=== PATIENT | female | born 1965 | race Caucasian/White ===

== ENCOUNTER → 2019-06-17 15:22 | Outpatient (CLI) | payer OTHER, SELFPAY ==
--- NOTE | 2019-06-17 | DI.MG.S_ITS ---
BILATERAL DIGITAL SCREENING MAMMOGRAM 3D/2D WITH CAD: 06/17/2019 CLINICAL: Routine screening. Family history of breast cancer. Comparison is made to exams dated: 10/14/2017 mammogram, 09/26/2017 mammogram, 12/04/2016 mammogram, 10/19/2013 mammogram, and 09/29/2012 mammogram - [facility]. The tissue of both breasts is extremely dense, which lowers the sensitivity of mammography. Current study was also evaluated with a Computer Aided Detection (CAD) system. There are biopsy clips in the left breast. No significant masses, calcifications, or other findings are seen in either breast. There has been no significant interval change. IMPRESSION: NEGATIVE There is no mammographic evidence of malignancy. A 1 year screening mammogram is recommended. This exam was interpreted at Station ID: [id number]. NOTE: For mammograms, a report in lay terms will be sent to the patient. Approximately 15% of breast malignancies will not be visualized mammographically. In the management of a palpable breast mass, a negative mammogram must not discourage biopsy of a clinically suspicious lesion. Electronically Signed By: Humberto botello/víctor:06/18/2019 15:17:24 letter sent: Normal Exam ACR BI-RADS Category 1: Negative 3341F
== END ==
PROVIDERS: PCP Internal Medicine; Visit Provider Internal Medicine
DX: Z12.31 Encounter for screening mammogram for malignant neoplasm of breast (principal); Z80.3 Family history of malignant neoplasm of breast
CPT/HCPCS: 77063; 77067

== ENCOUNTER → 2019-10-12 10:52 | Outpatient (CLI) | payer OTHER, SELFPAY ==
--- NOTE | 2019-10-12 | DI.RAD.S_ITS ---
PROCEDURE: XR CHEST 2V INDICATIONS: DYSPNEA TECHNIQUE: 2 views of the chest were acquired. COMPARISON: [facility], , CHEST 2 VIEW, 07/09/2016, 15:53. FINDINGS: Surgical changes and devices: None. Lungs and pleura: Lungs are clear, lung volumes appear somewhat enlarged. No pleural effusions or pneumothorax. Mediastinum: Mediastinal contours are normal. Heart size is normal. Bones and chest wall: No suspicious bony abnormalities. Soft tissues appear unremarkable. IMPRESSION: Relatively enlarged lung volumes for age, source of current dyspnea symptoms is not seen as being caused by pneumonia. Please correlate for presence of asthma or COPD. Aggressive inspiratory effort also could produce this appearance. Dictated by: Chu Ortiz M.D. on 10/12/2019 at 11:20 Approved by: Chu Ortiz M.D. on 10/12/2019 at 11:21
== END ==
PROVIDERS: PCP Internal Medicine; Referring Provider Internal Medicine; Visit Provider Internal Medicine
DX: R06.00 Dyspnea, unspecified (principal)
CPT/HCPCS: 71046

== ENCOUNTER → 2020-06-19 11:50 | Outpatient (CLI) | payer OTHER, SELFPAY ==
--- NOTE | 2020-06-19 | DI.MG.S_ITS ---
BILATERAL DIGITAL SCREENING MAMMOGRAM 3D/2D WITH CAD: 06/19/2020 CLINICAL: Routine screening. Family history of breast cancer. Comparison is made to exams dated: 06/17/2019 mammogram - [facility], 12/17/2017 mammogram - [facility], 10/14/2017 mammogram, and 09/26/2017 mammogram - [facility]. The tissue of both breasts is extremely dense, which lowers the sensitivity of mammography. Current study was also evaluated with a Computer Aided Detection (CAD) system. There are benign calcifications in both breasts. There also are biopsy clips in the left breast. No significant masses, calcifications, or other findings are seen in either breast. There has been no significant interval change. IMPRESSION: BENIGN There is no mammographic evidence of malignancy. A 1 year screening mammogram is recommended. This exam was interpreted at Station ID: [id number]. NOTE: For mammograms, a report in lay terms will be sent to the patient. Approximately 15% of breast malignancies will not be visualized mammographically. In the management of a palpable breast mass, a negative mammogram must not discourage biopsy of a clinically suspicious lesion. Electronically Signed By: Isaiah quiles/víctor:06/19/2020 12:43:05 letter sent: Normal Exam ACR BI-RADS Category 2: Benign Finding(s) 3342F
== END ==
PROVIDERS: PCP Internal Medicine; Referring Provider Internal Medicine; Visit Provider Internal Medicine
DX: Z12.31 Encounter for screening mammogram for malignant neoplasm of breast (principal); Z80.3 Family history of malignant neoplasm of breast
CPT/HCPCS: 77063; 77067

== ENCOUNTER → 2020-11-08 09:09 | Outpatient (CLI) | payer OTHER, SELFPAY ==
[2020-11-08 10:54] LABS: COVID19 -Nasal RAPID Negative (Negative)
== END ==
PROVIDERS: PCP Internal Medicine; Visit Provider Nurse Practitioner Family
DX: Z01.812 Encounter for preprocedural laboratory examination (principal); Z20.822 Contact with and (suspected) exposure to COVID-19
CPT/HCPCS: 87635

== ENCOUNTER 2020-11-10 14:15 | Day surgery (SDC) | payer OTHER, SELFPAY ==
--- NOTE | 2020-11-10 | PATH_ITS ---
[facility] Accession Number: [id number] . 01 Material submitted: . colon - SIGMOID POLYP 2MM . 02 Diagnosis: Sigmoid Colon, Polyp, 2 MM, Biopsy: Hyperplastic polyp. [facility] 11/15/2020 1405 Local . 02 Electronically signed: . Felipa Santiago MD, Pathologist NPI- [id number] . 01 Gross description: . SIGMOID POLYP 2MM: Received in formalin is 1 fragment(s) of herrera, soft tissue measuring 0.3 x 0.3 x 0.3 cm submitted entirely in 1 cassette(s) /QBJ 11/14/2020 0122 Local . 02 Pathologist provided ICD-10: K63.5 . 02 CPT . 517482 Performed at: 01 [facility] [address], [place], [place] [id number] MD Ruben Cartwright MD Phone: [phone] Performed at: [address] [facility] [address] [place], [place] [id number] MD Felipa Santiago MD Phone: [phone]
--- NOTE | 2020-11-10 12:38 | PM.HP.1 ---
History of Present Illness History of Present Illness Date Patient Seen: 11/10/20 Chief complaint: SDC Narrative: 54 year old female comes in today for consideration of a screening colonoscopy. She has had 2 lifetime colonoscopies secondary to colitis, type unspecified. It has been over 10 years since her last colonoscopy, normal. Patient has been in complete remission from her colitis for the past 10 years. There have been no lower GI symptoms suggesting disease such as change in bowel habits, bleeding, abdominal pain or anemia. There's been no family history of colon cancer or colon polyps. Overall health issues have been stable, including no major cardiac events for at least 6 weeks. 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 Twin girls, 2001. Patient History Medical History (Updated 11/10/20 @ 14:32 by Moses Aguirre RN) Asthma Colitis Dysthymia Pneumonia Surgical History (Updated 11/10/20 @ 14:32 by Moses Aguirre RN) Hx of breast biopsy Status post delivery Family & Social History Family History (Updated 10/03/16 @ 00:00 by Conversion Provider) Father Age: 74 Obese Mother Age: 74 Breast cancer Meds Home Medications and Allergies Home Medications Medication Instructions Recorded Confirmed Type cetirizine 10 mg PO QDAY #90 tab 11/29/16 11/10/20 Rx montelukast [Singulair] 10 mg PO QDAY #90 tab 08/11/17 11/10/20 Rx pantoprazole 40 mg PO QDAY #90 tab 12/29/17 11/10/20 Rx bupropion HCl 300 mg 24 hr tablet, 300 mg PO QDAY #90 tab 07/22/18 11/10/20 Rx extended release Allergies Allergy/AdvReac Type Severity Reaction Status Date / Time Sulfa (Sulfonamide Allergy Mild Unverified 12/17/17 12:04 Antibiotics) [SULFA (SULFONAMIDE ANTIBIOTICS)] Review of Systems Review of Systems ROS: Yes All systems reviewed with the patient and are negative except as otherwise documented Exam Narrative Exam Narrative: GENERAL: Alert and oriented, appearing stated age and in no acute distress. HEENT: Head normocephalic/atraumatic. Pupils equal, round, and reactive to light and accomodation. Extraocular muscles intact. Tympanic membranes clear. Nasal mucosa moist, septum midline. Oral mucosa moist, no lesions. Neck soft and supple, no lymphadenopathy. LUNGS: Clear to ausculation bilaterally, no wheezes, rhonchi or rales. CV: Normal S1 and S2 with regular rate and rhythm, no audible murmurs, rubs or gallops. ABDOMEN: Soft, non-tender, non-distended, no organomegaly. Positive bowel sounds. EXTREMITIES: No clubbing, cyanosis, or edema. NEURO: Cranial nerves II through XII grossly intact, no focal deficits. PSYCH: Alert and oriented x 3. SKIN: No concerning lesions. Assessment & Plan Assessment & Plan narrative: 1. Screening for colon cancer Plan for colonoscopy. The nature and character of the procedure as well as anticipated results were discussed. The possibility of not completing the procedure was also discussed. Possible complications including aspiration pneumonia, bleeding, perforation and reaction to medications either for sedation or preparation and missed lesions were discussed. Questions were answered and proceeding to the colonoscopy was elected. Informed consent signed. I sincerely appreciate the referral allowing me to participate in this patient's care. Please contact me with any questions or concerns.
--- NOTE | 2020-11-10 12:41 | P.OP.ENDO_ITS ---
Operative Date/Time/Diagnoses Date of procedure: 11/10/20 Procedure Notes SCOAP/Timeout: 3:23 p.m. Procedure in detail: ENDOSCOPIST: Caroline Linares MD Sedation RN: Suki Dale RN Sedation start time: 3:24 p.m. Sedation end time: 3:50 p.m. PROCEDURE: Colonoscopy with biopsy INDICATIONS: 1. Screening for colon cancer 2. History of colitis MEDICATION: Levsin 0.125 mg sublingual, incremental doses of Versed and fentanyl until appropriate level sedation achieved. ASA CLASS: 2 CECAL WITHDRAWAL TIME: 11 minutes COMPLICATIONS: None. EXTENT OF PROCEDURE: Cecum. QUALITY OF PREP: Good with portions of liquid stool. PROCEDURE: Prior to insertion of the colonoscope, a digital rectal examination was accomplished with circumferential palpation of the distal rectal mucosa without significant findings being noted. The high-definition pediatric colonoscope was passed into the rectum in the usual fashion and advanced over to the cecum without difficulty. The ileocecal valve, appendiceal stoma, and medial wall all could be inspected and no abnormalities were seen. ASCENDING COLON: As the colonoscope was withdrawn, care was taken to expose and inspect the haustral folds and no abnormalities were seen. HEPATIC FLEXURE: Normal, no polyps, diverticula or other abnormalities. TRANSVERSE COLON: Normal, no polyps, diverticula or other abnormalities. DESCENDING COLON: Normal, no polyps, diverticula or other abnormalities. SIGMOID COLON: 2 mm polyps removed with cold biopsy forceps. Otherwise, normal, no diverticula or other abnormalities. RECTUM: Normal. J maneuver was produced. There was no significant perianal di sease. The J maneuver was broken. The remainder of the rectum was inspected and there was no external hemorrhoid disease. The scope was withdrawn. IMPRESSION: 1. Sigmoid polyp x1, 2 mm, removed with cold biopsy forceps 2. No gross evidence of colitis. PLAN: 1. Follow-up in clinic status post pathology results. The possibility of a missed lesion including a malignancy has been discussed with the patient previously. Potential alarm symptoms have been discussed and should be reported immediately.
[2020-11-10] MEDS: HYOSCYAMINE 0.125 MG TABLET PO (14:45)
[2020-11-10] MEDS: LACTATED RINGERS 1,000 ML 200 ML IV (14:58)
[2020-11-10 15:01] VITALS: BP 132/90; PULSE 74; RESP 13; TEMP 36.9; O2SAT 96; BMI 24.1
[2020-11-10] MEDS: MIDAZOLAM 5 MG/5 ML VIAL IV (15:43)
[2020-11-10] MEDS: fentaNYL 250 MCG/5 ML INJ IV (15:43)
[2020-11-10 16:04] VITALS: BP 130/85; PULSE 63; RESP 18; TEMP 36.7; O2SAT 99
[2020-11-10 16:09] VITALS: BP 119/81; PULSE 72; RESP 18; O2SAT 98
[2020-11-10 16:13] VITALS: BP 128/82; PULSE 70; RESP 19; O2SAT 98
[2020-11-10 16:18] VITALS: BP 124/91; PULSE 66; RESP 18; O2SAT 98
[2020-11-10 16:20] VITALS: BP 125/78; PULSE 67; RESP 18; TEMP 36.4; O2SAT 99
== END 2020-11-10 15:35 | disposition home or self-care (01) ==
PROVIDERS: PCP Internal Medicine; Referring Provider Student in an Organized Health Care Education/Training Program; Visit Provider Student in an Organized Health Care Education/Training Program
PROC: 0DJD8ZZ Inspection of Lower Intestinal Tract, Via Natural or Artificial Opening Endoscopic (ICD-10-PCS; CPT 45378; principal; 2020-11-10 15:15)
DX: Z12.11 Encounter for screening for malignant neoplasm of colon (principal); K63.5 Polyp of colon
CPT/HCPCS: 45380; J2250; J3010

== ENCOUNTER → 2021-07-09 17:10 | Outpatient (CLI) | payer OTHER, SELFPAY ==
--- NOTE | 2021-07-09 17:12 | DI.MG.S_ITS ---
BILATERAL DIGITAL SCREENING MAMMOGRAM 3D/2D WITH CAD: 07/09/2021 CLINICAL: Routine screening. Family history of breast cancer. Comparison is made to exams dated: 06/19/2020 mammogram, 06/17/2019 mammogram - [facility], 12/17/2017 mammogram - [facility], and 09/26/2017 [facility]. The tissue of both breasts is heterogeneously dense. This may lower the sensitivity of mammography. Current study was also evaluated with a Computer Aided Detection (CAD) system. There are benign calcifications in both breasts. There also are biopsy clips in the left breast. No significant masses, calcifications, or other findings are seen in either breast. There has been no significant interval change. IMPRESSION: BENIGN There is no mammographic evidence of malignancy. A 1 year screening mammogram is recommended. This exam was interpreted at Station ID: [id number]. NOTE: For mammograms, a report in lay terms will be sent to the patient. Approximately 15% of breast malignancies will not be visualized mammographically. In the management of a palpable breast mass, a negative mammogram must not discourage biopsy of a clinically suspicious lesion. Electronically Signed By: Isaiah quiles/víctor:07/09/2021 17:31:45 letter sent: Normal Exam ACR BI-RADS Category 2: Benign Finding(s) 3342F
== END ==
PROVIDERS: PCP Internal Medicine; Referring Provider Internal Medicine; Visit Provider Internal Medicine
DX: Z12.31 Encounter for screening mammogram for malignant neoplasm of breast (principal); Z80.3 Family history of malignant neoplasm of breast
CPT/HCPCS: 77063; 77067

== ENCOUNTER → 2021-09-10 10:44 | Outpatient (CLI) | payer OTHER, SELFPAY ==
[2021-09-10 11:49] LABS: Hemoglobin A1C% w Est Avg Glu 5.4 % (4.0-6.0)
== END ==
PROVIDERS: PCP Internal Medicine; Referring Provider Internal Medicine; Visit Provider Internal Medicine
DX: R73.9 Hyperglycemia, unspecified (principal)
CPT/HCPCS: 36415; 83036

== ENCOUNTER → 2021-12-15 12:56 | Outpatient (CLI) | payer OTHER, SELFPAY | PROVIDERS: PCP Internal Medicine; Referring Provider Nurse Practitioner Critical Care Medicine; Visit Provider Nurse Practitioner Critical Care Medicine | DX: J02.9 Acute pharyngitis, unspecified (principal) | CPT/HCPCS: 87070; 87077; 87186 ==

== ENCOUNTER → 2022-07-08 15:20 | Outpatient (CLI) | payer OTHER, SELFPAY ==
--- NOTE | 2022-07-08 15:21 | DI.US.S_ITS ---
PROCEDURE: US PELVIC COMPLETE INDICATIONS: Postmenopausal bleeding TECHNIQUE: Real-time scanning was performed of the pelvic organs, with image documentation. Additional endovaginal scanning was necessary due to incomplete visualization of the adnexal and endometrial structures by transabdominal scanning. COMPARISON: None. FINDINGS: Uterus: Uterus is vertically oriented and normal in size at 6.2 x 3.4 x 5.3 cm. The myometrium is homogeneous. The endometrium measures 2.9 mm combined thickness. No abnormal vascularity. The cervix appears normal. Ovaries: There are ovary was well seen. Other: No pathologic free abdominal or pelvic fluid. IMPRESSION: 1. Vertically oriented uterus with probably normal endometrial stripe for postmenopausal female. 2. Nonvisualization of either ovary or any suspicious adnexal mass or fluid. We strive to produce accurate, complete, and clear reports of imaging services. To assist us in improving patient care, this report was composed using standard report templates and voice recognition software. Therefore, it may contain abnormal punctuation, insertions and/or omissions. Occasional wrong-word or sound-alike substitutions may occur. Though we review the report and make efforts to correct it, we do recommend that the report be read carefully in proper context to recognize any text inaccuracies. Dictated by: Shelly Norman M.D. on 07/08/2022 at 16:28 Approved by: Shelly Norman M.D. on 07/08/2022 at 16:30
== END ==
PROVIDERS: PCP Internal Medicine; Referring Provider Internal Medicine; Visit Provider Internal Medicine
DX: N95.0 Postmenopausal bleeding (principal)
CPT/HCPCS: 76830; 76856

== ENCOUNTER → 2022-08-06 08:26 | Outpatient (CLI) | payer OTHER, SELFPAY ==
--- NOTE | 2022-08-06 08:27 | DI.MG.S_ITS ---
BILATERAL DIGITAL SCREENING MAMMOGRAM 3D/2D WITH CAD: 08/06/2022 CLINICAL: Routine screening. Family history of breast cancer. Comparison is made to exams dated: 07/09/2021 mammogram, 06/17/2019 mammogram, and 06/19/2020 mammogram - [facility]. Both breasts are heterogeneously dense, which may obscure small masses (category c / 51-75% glandular tissue). Current study was also evaluated with a Computer Aided Detection (CAD) system. There are benign calcifications in both breasts. There also are biopsy clips in the left breast. No significant masses, calcifications, or other findings are seen in either breast. There has been no significant interval change. IMPRESSION: BENIGN There is no mammographic evidence of malignancy. A 1 year screening mammogram is recommended. Based on Tyrer-Cuzick model (a risk assessment model), the patient's lifetime risk is 25.6% and her 10 year risk is 8.0%. If a patient has an elevated risk, a more comprehensive evaluation should be considered and/or a referral to a genetic counselor. The [place] [employer], [employer], and NCCN Guidelines advise the consideration of Breast MRI as an adjunct to screening mammography in patients whose Lifetime risk to develop breast cancer is 20% or higher. This exam was interpreted at Station ID: [id number]. NOTE: For mammograms, a report in lay terms will be sent to the patient. Approximately 15% of breast malignancies will not be visualized mammographically. In the management of a palpable breast mass, a negative mammogram must not discourage biopsy of a clinically suspicious lesion. Electronically Signed By: Nicholas barbosa/víctor:08/06/2022 09:12:50 letter sent: Normal Exam ACR BI-RADS Category 2: Benign Finding(s) 3342F
== END ==
PROVIDERS: PCP Internal Medicine; Referring Provider Internal Medicine; Visit Provider Internal Medicine
DX: Z12.31 Encounter for screening mammogram for malignant neoplasm of breast (principal); Z80.3 Family history of malignant neoplasm of breast
CPT/HCPCS: 77063; 77067

== ENCOUNTER → 2023-09-10 13:56 | Outpatient (CLI) | payer OTHER, SELFPAY ==
--- NOTE | 2023-09-10 13:58 | DI.MG.S_ITS ---
BILATERAL DIGITAL SCREENING MAMMOGRAM 3D/2D WITH CAD: 09/10/2023 CLINICAL: Routine screening. Family history of breast cancer. Comparison is made to exams dated: 08/06/2022 mammogram, 07/09/2021 mammogram, and 06/19/2020 mammogram - [facility]. Both breasts are heterogeneously dense, which may obscure small masses (category c / 51-75% glandular tissue). Current study was also evaluated with a Computer Aided Detection (CAD) system. There are benign calcifications in both breasts. There also are biopsy clips in the left breast. No significant masses, calcifications, or other findings are seen in either breast. There has been no significant interval change. IMPRESSION: BENIGN There is no mammographic evidence of malignancy. A 1 year screening mammogram is recommended. Based on Tyrer-Cuzick model (a risk assessment model), the patient's lifetime risk is 25.3% and her 10 year risk is 8.3%. If a patient has an elevated risk, a more comprehensive evaluation should be considered and/or a referral to a genetic counselor. The [place] [employer], [employer], and NCCN Guidelines advise the consideration of Breast MRI as an adjunct to screening mammography in patients whose Lifetime risk to develop breast cancer is 20% or higher. This exam was interpreted at Station ID: [id number]. NOTE: For mammograms, a report in lay terms will be sent to the patient. Approximately 15% of breast malignancies will not be visualized mammographically. In the management of a palpable breast mass, a negative mammogram must not discourage biopsy of a clinically suspicious lesion. Electronically Signed By: Na bernal/víctor:09/10/2023 17:07:02 letter sent: Normal Exam ACR BI-RADS Category 2: Benign Finding(s) 3342F
== END ==
LOC: MAMMO 13:56
PROVIDERS: PCP Internal Medicine; Referring Provider Internal Medicine; Visit Provider Internal Medicine
DX: Z12.31 Encounter for screening mammogram for malignant neoplasm of breast (principal); Z80.3 Family history of malignant neoplasm of breast
CPT/HCPCS: 77063; 77067

== ENCOUNTER → 2024-06-22 15:49 | Outpatient (CLI) | payer OTHER, SELFPAY ==
--- NOTE | 2024-06-22 15:50 | DI.US.S_ITS ---
PROCEDURE: US PELVIC COMPLETE INDICATIONS: POSTMENOPAUSAL BLEEDING TECHNIQUE: Real-time scanning was performed of the pelvic organs, with image documentation. Additional endovaginal scanning was necessary due to incomplete visualization of the adnexal and endometrial structures by transabdominal scanning. COMPARISON: [facility], , US PELVIC COMPLETE, 07/08/2022, 15:28. FINDINGS: Uterus: Uterus is retroverted and normal in size at 6.4 x 4.6 x 4.0 cm. The myometrium is heterogeneous. The endometrium measures 13.1 mm combined thickness. There are 2 endometrial nodules with vascularity, mid nodule measures 6 x 7 x 4 mm, fundal nodule measures 15 x 9 x 6 mm. Cervical fluid is noted. Ovaries: The right ovary is not well seen. The left ovary measures 2.6 x 1.7 x 1.0 cm, with a calculated ovarian volume of 2.3 cc. Left ovary is normal in appearance. Other: No pathologic free abdominal or pelvic fluid. IMPRESSION: Endometrium is thickened measuring 13 mm with 2 endometrial nodules, largest measuring 15 mm. Endometrial polyp and malignancy are in the differential. Recommend further evaluation with endometrial sampling. We strive to produce accurate, complete, and clear reports of imaging services. To assist us in improving patient care, this report was composed using standard report templates and voice recognition software. Therefore, it may contain abnormal punctuation, insertions and/or omissions. Occasional wrong-word or sound-alike substitutions may occur. Though we review the report and make efforts to correct it, we do recommend that the report be read carefully in proper context to recognize any text inaccuracies. Dictated by: Herbert Lester M.D. on 06/22/2024 at 21:47 Approved by: Herbert Lester M.D. on 06/22/2024 at 21:49
== END ==
LOC: US 15:50
PROVIDERS: PCP Internal Medicine; Referring Provider Internal Medicine; Visit Provider Internal Medicine
DX: N95.0 Postmenopausal bleeding (principal); R93.89 Abnormal findings on diagnostic imaging of other specified body structures
CPT/HCPCS: 76830; 76856

== ENCOUNTER 2024-07-29 11:58 | Day surgery (SDC) | payer OTHER, SELFPAY ==
[2024-07-26 11:14] VITALS: BMI 27.4
[2024-07-29] VITALS (7 sets, daily range): BP systolic 117–137; BP diastolic 77–83; PULSE 58–76; RESP 14–16; TEMP 36.6–36.9; O2SAT 94–100; BMI 25.7
--- NOTE | 2024-07-29 | PATH_ITS ---
[facility] Accession Number: [id number] No. of containers..01 Tissue . 01 Material submitted: . endometrium - ENDOMETRIAL POLYP . 01 Diagnosis: ENDOMETRIAL POLYP: Portions of disordered proliferative endometrium; negative for endometrioid intraepithelial neoplasia or malignancy. Most endometrial fragments demonstrate prominent vessels, suggestive of polyp, if clinical and imaging studies are concordant. [facility] 08/04/2024 0657 Local . 01 Electronically signed: . Glenys Cotton MD, Pathologist NPI- [id number] . 01 Gross description: . ENDOMETRIAL POLYP: Received in formalin are minute fragments of mucoid and hemorrhagic material measuring 2.5 x 2.5 x 0.2 cm in aggregate. Submitted in toto in 1 cassette. /ALEXEI 07/30/20241950 Local . 01 Pathologist provided ICD-10: N84.0 . 01 CPT . 561207 Specimen Comment: A courtesy copy of this report has been sent to [facility] Pathology Performed at: 01 [facility] [address], [place], [place] [id number] MD Ruben Cartwright MD Phone: [phone]
[2024-07-29] MEDS: LACTATED RINGERS 1,000 ML 42 ML IV (12:21)
[2024-07-29] MEDS: ALBUTEROL 2.5 MG/3 ML NEB (ADULT) INH (12:24)
[2024-07-29] MEDS: ACETAMINOPHEN 325 MG TABLET 975 MG PO (12:24)
--- NOTE | 2024-07-29 12:37 | SUR.OPER ---
Lithotomy on padded OR bed, head on pillow, arms secured on padded arm boards at <90 degrees abduction. Legs secured in padded yellow fins stirrups.
--- NOTE | 2024-07-29 12:40 | PM.PREOP ---
Pre-operative Note Interval Note History & Physical reviewed/Exam performed by Physician: Yes
--- NOTE | 2024-07-29 12:41 | P.HPOB_ITS ---
History of Present Illness History of Present Illness Narrative: Na Knowles is a 58 year old female admitted for same day surgery for planned diagnostic hysteroscopy with polypectomy. She denies any new concerns today. [facility] Medical History Colitis Pneumonia Asthma Dysthymia Surgical History Hx of breast biopsy Status post delivery Family History Father Age: 77 Obese Mother Age: 77 Breast cancer Social History household members: spouse and children Smoking Status: Never smoker alcohol intake: current Meds Home Medications and Allergies Home Medications Medication Instructions Recorded Confirmed Type cetirizine 10 mg tablet 10 mg PO QDAY #90 tabs 11/29/16 07/29/24 Rx montelukast 10 mg tablet 10 mg PO QDAY #90 tabs 08/11/17 07/29/24 Rx (Singulair) pantoprazole 40 mg tablet,delayed 40 mg PO QDAY #90 tabs 12/29/17 07/29/24 Rx release bupropion HCl 300 mg 24 hr tablet, 300 mg PO QDAY #90 tabs 07/22/18 07/29/24 Rx extended release (Wellbutrin XL) Allergies Allergy/AdvReac Type Severity Reaction Status Date / Time sulfasalazine Allergy Intermediate sob Verified 07/29/24 12:17 [From Sulfazine] Review of Systems Review of Systems ROS: Yes All systems reviewed with the patient and are negative except as otherwise documented Exam Vital Signs (past 8 hours): - 07/29/24 12:28 Temperature 98.5 F Pulse Rate 76 Respiratory Rate 16 Blood Pressure 131/77 Pulse Oximetry 100 Oxygen Delivery Method Room Air Oxygen Delivery Method Room Air Const General: healthy appearing, comfortable and No acute distress Resp Effort & Inspection: normal respiratory effort and able to speak in complete sentences Neuro General: patient alert, patient awake and patient oriented x3 Cognition: normal cognition Speech: speech normal Extrem General: normal to inspection Psych Mood: congruent mood Affect: normal affect Assessment & Plan Assessment and plan (1) Endometrial polyp: Status: Acute (2) Postmenopausal bleeding: Status: Acute Assessment & Plan narrative: 58yo F with PMB, with endometrial biopsy showing features suggestive of endometrial polyp, here for planned diagnostic hysteroscopy with polypectomy. -reviewed risk/benefit of procedure, and signed surgical consent today -plan for same day surgery Surgery consent We discussed the risks/benefits/alternatives to the proposed procedure, to include but not limited to: -risk of bleeding, requiring medications, blood products, or other procedures as indicated -risk of infection, requiring prolonged hospital stay or other procedures -risk of injury to other structures, including bowel, bladder, blood vessels, nerves, etc. which may also require additional procedures -risk of adverse reaction to anesthesia or medications -risk of venous thromboembolism and associated sequelae -risk of rare complications such as cardiac arrest, or extremely rarely, Patient is aware of the risks, and desires to proceed with planned surgical procedure. Time-Based Coding :: [TOTAL MINUTES] spent with patient and on the chart (including review of chart, obtaining history, exam, reviewing outside data, placing orders, documenting exam and treatment plan, and counseling patient) on [DATE].
[2024-07-29] MEDS: SILVER NITRATE STICK 2 EACH TOP (13:20)
[2024-07-29] MEDS: SILVER NITRATE STICK 1 EACH TOP (13:21)
--- NOTE | 2024-07-29 13:25 | P.OP_ITS ---
Operative Date/Time/Diagnoses Date of procedure: 07/29/24 Time of procedure: 13:00 Pre-op diagnosis: Postmenopausal bleeding Suspected endometrial polyp Post-op diagnosis: same Procedure & Clinicians Procedure: Diagnostic hysteroscopy Hysteroscopic polypectomy Same procedure as scheduled: Yes Indications: 58yo F with postmenopausal bleeding, status post endometrial biopsy in the office that showed features suspicious for endometrial polyp. Surgeon: Mercedez Branch Click Yes if Unassisted: Yes Anesthesia Type: General Operative Notes Findings: Endometrial polyp noted on the right side of the endometrial cavity. Normal appearing endometrium otherwise. Bilateral tubal ostia visualized. Normal appearing cervix, vagina, and vulva. Closure Type: not applicable Specimen(s): other (endometrial polyp) Estimated Blood Loss (mL): 2 Blood products transfused: none Procedure in detail: The risks, benefits, indications and alternatives of the procedure were reviewed with the patient and informed consent was obtained. The pt was taken to the operating room where general anesthesia with LMA was obtained without difficulty. The pt was then placed in the low lithotomy position using gel- padded Sherman stirrups. Sequential compression devices were placed bilaterally for VTE prophylaxis. The pt was then prepped and draped in the sterile fashion. A sterile speculum was placed in the patient?s vagina and the cervix was visualized. A single tooth tenaculum was used to grasp the anterior lip of the cervix. The cervix was then gently, dilated to a size 8 Hegar dilator. The operative hysteroscope was first primed and pressure set. The operative hysteroscope was then advanced through the endocervical canal under direct visualization. The uterus was distended with warm saline, and notable for the above findings. The Myosure Lite was then inserted into the operative hysteroscope. The endometrial polyp was excised with the Myosure device. The operative hysteroscope was then removed under direct visualization. Tissue obtained was sent to pathology for review. The single tooth tenaculum was removed from the anterior lip of the cervix. The tenaculum site was noted to be hemostatic after direct pressure and silver nitrate was applied. All instruments were then removed from the patient?s vagina. Hysteroscopic fluid deficit was 170cc of normal saline. The patient tolerated the procedure well. At the completion of the case the sponge and needle counts were correct x 2. The patient was taken to the PACU in stable condition. Complications: none Post-operative Condition: stable Disposition: PACU Plan for aftercare: Discharge to home once patient is meeting all discharge criteria.
== END 2024-07-29 14:24 | disposition home or self-care (01) ==
PROVIDERS: PCP Internal Medicine; Referring Provider Student in an Organized Health Care Education/Training Program; Visit Provider Student in an Organized Health Care Education/Training Program
PROC: 0UDB8ZZ Extraction of Endometrium, Via Natural or Artificial Opening Endoscopic (ICD-10-PCS; CPT 58558; principal; 2024-07-29 13:15)
DX: N95.0 Postmenopausal bleeding (principal); N84.0 Polyp of corpus uteri
CPT/HCPCS: 58558; J1100; J1885; J2405; J2704; J3010; J7613

== ENCOUNTER → 2024-10-05 17:10 | Outpatient (CLI) | payer OTHER, SELFPAY ==
--- NOTE | 2024-10-05 17:11 | DI.MG.S_ITS ---
BILATERAL DIGITAL SCREENING MAMMOGRAM 3D/2D WITH CAD: 10/05/2024 CLINICAL: Routine screening. Family history of breast cancer. Comparison is made to exams dated: 08/06/2022 mammogram, 07/09/2021 mammogram, and 06/19/2020 mammogram - [facility]. The breasts are heterogeneously dense, which may obscure small masses (category c / 51-75% glandular tissue). Current study was also evaluated with a Computer Aided Detection (CAD) system. There are benign calcifications in both breasts. There also are biopsy clips in the left breast. No significant masses, calcifications, or other findings are seen in either breast. There has been no significant interval change. IMPRESSION: BENIGN There is no mammographic evidence of malignancy. A 1 year screening mammogram is recommended. Based on Tyrer-Cuzick model (a risk assessment model), the patient's lifetime risk is 29.6% and her 10 year risk is 10.5%. If a patient has an elevated risk, a more comprehensive evaluation should be considered and/or a referral to a genetic counselor. The [place] [employer], [employer], and NCCN Guidelines advise the consideration of Breast MRI as an adjunct to screening mammography in patients whose Lifetime risk to develop breast cancer is 20% or higher. This exam was interpreted at Station ID: [id number]. NOTE: For mammograms, a report in lay terms will be sent to the patient. Approximately 15% of breast malignancies will not be visualized mammographically. In the management of a palpable breast mass, a negative mammogram must not discourage biopsy of a clinically suspicious lesion. Electronically Signed By: Hussein portillo/víctor:10/06/2024 08:04:00 letter sent: Normal Exam ACR BI-RADS Category 2: Benign
== END ==
LOC: MAMMO 17:11
PROVIDERS: PCP Registered Nurse; Referring Provider Registered Nurse; Visit Provider Registered Nurse
DX: Z12.31 Encounter for screening mammogram for malignant neoplasm of breast (principal); Z80.3 Family history of malignant neoplasm of breast
CPT/HCPCS: 77063; 77067

== ENCOUNTER → 2025-04-05 10:57 | Outpatient (CLI) | payer OTHER, SELFPAY ==
--- NOTE | 2025-04-05 10:57 | DI.MRI.S_ITS ---
MR breast BI wo/w con: 04/05/2025. BI-RADS: 2 CLINICAL: 59-year old female for bilateral diagnostic breast MRI. High-Risk Screening MRI. Current reported family history of breast cancer: mother. PRIOR EXAMS 10/05/2024, 09/10/2023, 08/06/2022, 07/09/2021, 06/19/2020, 06/17/2019. MRI TECHNIQUE Bilateral breast MRI was performed on a 1.5 Esthela magnet using a dedicated breast coil with mild compression. Axial T1 and T2 STIR sequences were obtained. Dynamic contrast enhanced VIBRANT fat-suppressed sequences were obtained. Delayed sagittal high resolution or sagittal reconstructed isotropic sequence was also obtained. Subtraction images and maximum intensity projection images were obtained. The study was evaluated using MediTAP software. 20 mL Prohance was injected intravenously. FIBROGLANDULAR TISSUE Bilateral: C. Heterogeneous fibroglandular tissue. BACKGROUND PARENCHYMAL ENHANCEMENT Bilateral: Moderate symmetrical background parenchymal enhancement. BREAST FINDINGS Right: No suspicious mass, suspicious non-mass enhancement, or other concerning finding identified. Left: Surgical clip(s) and/or marker(s) present on the left. There is no suspicious finding with benign findings noted. Bilateral: There are no abnormal axillary or internal mammary lymph nodes. IMPRESSION: Right * No evidence of malignancy. Left * No evidence of malignancy with benign findings. RECOMMENDATIONS Bilateral * Recommend consideration for annual screening breast MRI as an adjunct to screening mammography if this patient has an elevated lifetime risk for breast cancer of over 20%. This is to be offset by approximately 6 months from patient's mammogram. * Annual screening mammography. COMMENTS: The imaging literature indicates that a negative contrast breast MRI examination has a high sensitivity and a moderate specificity for detecting and excluding invasive carcinomas to a detection threshold of 3-5 mm; nonetheless, appropriate clinical and mammographic follow-up are recommended. MRI is not sensitive for detecting DCIS (ductal carcinoma in situ) and may not detect large invasive neoplasms that show only minimal enhancement such as mucinous carcinoma. If there are suspicious calcifications or clinically worrisome palpable masses, then biopsy should still be considered. Invasive neoplasms can be hidden by co-existent and benign enhancement caused by mastitis, hormone therapy effects, radiation therapy, , and recent biopsy or surgery. False positive examinations can occur in a number of circumstances, including breasts that have recently been subject to invasive procedures and those that contain atypical ductal hyperplasia, hormonally stimulated glandular tissue, fat necrosis, or radial scars. OVERALL ASSESSMENT CATEGORY BI-RADS-2: Benign. ELECTRONICALLY SIGNED: Aurora Saleh M.D. on 04/05/2025 at 05:06:15 PM PT Interpreting Station ID: [id number]
== END ==
LOC: MRI 10:57
PROVIDERS: PCP Registered Nurse; Referring Provider Registered Nurse; Visit Provider Registered Nurse
DX: Z12.39 Encounter for other screening for malignant neoplasm of breast (principal); Z91.89 Other specified personal risk factors, not elsewhere classified
CPT/HCPCS: 77049; A9579